=== PATIENT | female | born 1960 | race Caucasian/White ===

== ENCOUNTER 2016-07-16 21:53 | Emergency (ER) | payer BC ==
[2016-07-17] MEDS ORDERED: TRAMADOL HCL 50 MG TABLET PO ONE (01:37)
--- NOTE | 2016-07-17 01:42 | ER Document Report ---
ED General - General Chief Complaint: Elbow Injury Stated Complaint: FALL/ELBOW PAIN Notes: Patient is a 55-year-old female who presents for complaint of pain and swelling to right elbow after she fell onto her right arm. She says she has some pain radiates down into her hand. It hurts into her elbow whenever she moves her hand. She denies any other trauma or injuries. No numbness or weakness to the hand. TRAVEL OUTSIDE OF THE [place] IN LAST 30 DAYS: No - Related Data Allergies/Adverse Reactions: Penicillins Allergy (Verified 07/16/16 22:03) Past Medical History - Social History Smoking Status: Never Smoker Frequency of alcohol use: None Drug Abuse: None Family History: Reviewed & Not Pertinent Patient has suicidal ideation: No Patient has homicidal ideation: No Renal/ Medical History: Denies: Hx Peritoneal Dialysis Review of Systems - Review of Systems Notes: My Normal Review Basic REVIEW OF SYSTEMS: CONSTITUTIONAL : Denies fever, chills, or sweats. Denies recent illness. MUSCULOSKELETAL: Right elbow pain. SKIN: Denies rash or skin lesions. NEUROLOGICAL: Denies sensory or motor loss. ALL OTHER SYSTEMS REVIEWED AND NEGATIVE. Physical Exam - Vital signs Vitals: Temp Pulse Resp BP Pulse Ox 98.2 F 81 18 166/74 H 99 07/16/16 22:03 07/16/16 22:03 07/16/16 22:03 07/16/16 22:03 07/16/16 22:03 - Notes Notes: General Appearance: Well nourished, alert, cooperative, no acute distress, mild to moderate obvious discomfort. Vitals: reviewed, See vital signs table. Extremities: Patient has good radial and ulnar pulses in the right hand. Patient has some obvious swelling to the posterior lateral aspect of the right elbow. Patient's does not have any syncopal event pain palpation of the wrist or hand. She is able to do opposition of her thumb with her fingers. She's able make a fist. She is good distal sensation in all fingers. No neuro-motor deficits to the hand. No swelling or bruising to the hand or wrist. No pain to palpation of the shoulder. Skin: warm, dry, appropriate color, no rash Neuro: speech clear, oriented x 3, normal affect, responds appropriately to questions. Course - Vital Signs Vital signs: Temp Pulse Resp BP Pulse Ox 98.2 F 81 18 166/74 H 99 04/12/17 22:03 07/16/16 22:03 07/16/16 22:03 07/16/16 22:03 07/16/16 22:03 - Transfer of Care Notes: 07/17/16 02:33 Patient has a nondisplaced radial head fracture. Long-arm posterior splint was placed. No neurovascular compromise on exam. Patient will be discharged home with close follow-up with orthopedist. Patient encouraged, orthopedist office tomorrow morning to make an appointment for early next week. Patient agrees with plan and will be discharged home. Dictation of this chart was performed using voice recognition software; therefore, there may be some unintended grammatical errors. Procedures - Immobilization right arm Immobilizer type: Long arm posterior Performed by: PCT Post-Proc Neuro Vasc Exam: Normal Discharge - Discharge Clinical Impression: Radius head fracture Qualifiers: Encounter type: initial encounter Fracture type: closed Fracture alignment: nondisplaced Laterality: right Qualified Code(s): S52.124A - Nondisplaced fracture of head of right radius, initial encounter for closed fracture Condition: Good Disposition: HOME, SELF-CARE Instructions: Oral Narcotic Medication ([facility]) Additional Instructions: Splitn Precautions A splint has been placed. This will protect the area while healing begins. Your problem does NOT normally require a cast. It MUST, however, be held still! Keep the splint on ALL THE TIME until instructed to remove it by the doctor. As you begin to use the area, be careful. You shouldn't do anything which causes discomfort -- you may disturb the injury even with the splint in place. After the initial period of rest and elevation, if splint does not prevent pain when you move, come back. You may require placement of a different splint , or a cast. If there is unexpected severe pain, or numbness, discoloration, or swelling beyond the splint, you should return at once. If you feel that the splint has broken or become loose, come back. Please return to the ER immediately if you have intractable pain, numbness or weakness in the right hand, or feel unwell. Please loosen the Anjum wrap on the splint if you have increasing pain or feel that is too tight. Please follow-up with orthopedic doctor, Dr. James, for reevaluation. Prescriptions: Tramadol HCl [Ultram 50 mg Tablet] 50 mg PO Q6HP PRN #14 tablet PRN Reason: Forms: Return to Work Referrals: ANGELA VELASQUEZ MD [ACTIVE STAFF] - Follow up in 3-5 days
[2016-07-17 02:39] VITALS: BP 141/70
== END 2016-07-17 02:37 | disposition home or self-care (01) ==
LOC: ER 21:53
PROC: 2W38X1Z Immobilization of Right Upper Extremity using Splint (ICD-10-PCS; principal; 2016-07-16)
DX: S52.124A Nondisplaced fracture of head of right radius, initial encounter for closed fracture (principal); M25.521 Pain in right elbow; M79.89 Other specified soft tissue disorders; W19.XXXA Unspecified fall, initial encounter
CPT/HCPCS: 99283